=== PATIENT | male | born 1960 ===

== ENCOUNTER 2017-09-29 08:53 | Emergency (ER) | payer MEDICARE, OTHER ==
[2017-09-29] MEDS: KETOROLAC TROMETHAMINE 60 MG/2 ML VIAL IM ONE (09:40)
[2017-09-29] MEDS: KETOROLAC TROMETHAMINE 60 MG/2 ML VIAL ONE (09:55)
--- NOTE | 2017-09-29 10:07 | ED Physician Documentation ---
General Adult - HISTORIAN Historian: patient, other (shelter per phone) - HPI Stated Complaint: Lt jaw pain/stiffness since Wednesday Chief Complaint: General Adult Additional Information: pt has hx trigeminal neuralgia-he is having episodes sudden shooting pain in lt jaw. this comes intermittently. during episodes he does not drink water -the cold makes condition worse-he also does not eat much per shelter nurse. reportedly he has intermittent episodes approx q 6 months - lasts several days to week or so. 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 RECURRENT PYELONEPHRITIS) Allergies/Adverse Reactions: Allergies Allergy/AdvReac Type Severity Reaction Status Date / Time No Known Allergies Allergy Verified 09/29/17 09:53 Home Medications: Ambulatory Orders Medication Instructions Recorded Acetaminophen [Acetaminophen 8 650 mg PO Q8 PRN 09/29/17 Hour] Apixaban [Eliquis] 5 mg PO BID 09/29/17 Gabapentin 300 mg PO TID 09/29/17 Magnesium Citrate [Citrate of 148 ml PO D PRN 09/29/17 Magnesia] Polyethylene Glycol 3350 [Miralax] 1 cap PO D PRN 09/29/17 - SOCIAL HX Smoking History: non-smoker Alcohol Use: none Drug Use: none - FAMILY HX Family History: No - VITAL SIGNS Vital Signs: Vital Signs Temp Pulse Resp BP Pulse Ox 98.4 F 86 14 127/77 96 09/29/17 08:54 09/29/17 08:54 09/29/17 08:54 09/29/17 08:54 09/29/17 08:54 - REVIEWED ASSESSMENTS Nursing Assessment Reviewed: Yes Vitals Reviewed: Yes ED Results Lab/Radiology - Orders Orders: ED Orders Category Date Time Status Place IV Lock 1T Care 09/29/17 10:00 Ordered CBC/PLATELET/DIFF Routine Lab 09/29/17 Ordered CMP Routine Lab 09/29/17 Ordered URINALYSIS Routine Lab 09/29/17 Ordered 0.9 % Sodium Chloride [Normal Saline] 1,000 ml Med 09/29/17 10:00 Ordered IV Q1H FOSPHENYTOIN SODIUM MG in 0.9 % SODIUM CHLORIDE @ 6.5 Med 09/29/17 09:49 Ordered MLS/MIN(100ml) Fosphenytoin Sodium [Cerebyx] 500 mg 0.9 % Sodium Chloride [Sodium Chloride] 100 ml IV 1T Ketorolac Tromethamine [Toradol] Med 09/29/17 09:37 Discontinued 60 mg .ROUTE .STK-MED ONE Ketorolac Tromethamine [Toradol] Med 09/29/17 09:37 Discontinued 60 mg IM NOW ONE General Adult Physical Exam - PHYSICAL EXAM GENERAL APPEARANCE: moderate distress EENT: eye inspection normal NECK: normal inspection RESPIRATORY: no resp distress, breath sounds normal CVS: reg rate & rhythm, heart sounds normal ABDOMEN: soft, non-tender SKIN: warm/dry, normal color. No: cyanosis, diaphoresis, jaundice, mottled EXTREMITIES: non-tender (WHEEL CHAIR PT) NEURO: oriented X3, motor nml, sensation nml, mood/affect nml, other (PT STATES TOTALLY DEAF BUT READS LIPS WELL-STILL DIFFICULT TO TOTALLY COMMUNICATE) Discharge Clincal Impression: acute exaberation trigeminal neuralgia Referrals: Arturo Booth MD [Primary Care Provider] - 2 Days Comments: pt relates is markedly improved - now speaks w/o difficulty-states pain essentially gone Condition: Good Disposition: 01 HOME, SELF-CARE Decision to Admit: NO Decision Time: 17:29
[2017-09-29 10:28] LABS: BASOPHILS % 0.9 (0.0-1.5); EOSINOPHILS % 3.2 % (0.0-6.8); MEAN CORPUSCULAR HEMOGLOBIN 34.1 pg (28.0-34.0); MEAN CORPUSCULAR VOLUME 101.5 fl (80.0-100.0); NEUTROPHILS # 5.9 # k/uL (1.4-7.7)
[2017-09-29] MEDS: FOSPHENYTOIN SODIUM IV STA (10:35)
[2017-09-29] MEDS: SODIUM CHLORIDE 0.9% IV STA (10:35)
[2017-09-29] MEDS: 0.9 % SODIUM CHLORIDE 1,000 ML IV ONE (10:35)
[2017-09-29 10:47] LABS: eGFR (African) > 60; eGFR (Non-African) > 60
[2017-09-29 16:45] VITALS: BP 128/74
== END 2017-09-29 13:10 | disposition home or self-care (01) ==
LOC: ED 08:53
DX: G50.0 Trigeminal neuralgia (principal)
CPT/HCPCS: 80053; 85025; J1885; J7030; Q2009; 96365; 96366; 96375; 99284; S1016

== ENCOUNTER 2018-04-07 18:45 | Emergency (ER) | payer MEDICARE, OTHER ==
[2018-04-07] MEDS ORDERED: LIDOCAINE HCL 1% PF 50MG/5ML AMP (IM/SUTURE/PAIN CLINIC) IJ ONE (20:10)
[2018-04-07] MEDS ORDERED: cefTRIAXone SODIUM 1 GM INJ IM ONE (20:10)
--- NOTE | 2018-04-07 20:14 | ED Physician Documentation ---
General Adult - HPI Stated Complaint: refusing antibiotics Chief Complaint: General Adult Additional Information: Patient presents to ED via EMS from custodial because he is refusing antibiotics. Patient is taking Rocephin 1g IM daily for infected kidney stone. He is refusing so the custodial sent him to the ED. Patient asks, "why am I here, what is wrong with me". Onset: days ago Timing: still present Severity: mild - ROS CONST: fever EYES/ENT: none CVS/RESP: none GI/: none MS/SKIN/LYMPH: none NEURO/PSYCH: denies: headache - PAST HX Past History: none, COPD Other History: seizure disorder Allergies/Adverse Reactions: Allergies Allergy/AdvReac Type Severity Reaction Status Date / Time No Known Allergies Allergy Verified 04/07/18 19:46 Home Medications: Ambulatory Orders Medication Instructions Recorded Acetaminophen [Acetaminophen 8 650 mg PO Q8 PRN 09/29/17 Hour] Apixaban [Eliquis] 5 mg PO BID 09/29/17 Gabapentin 300 mg PO TID 09/29/17 Magnesium Citrate [Citrate of 148 ml PO D PRN 09/29/17 Magnesia] Polyethylene Glycol 3350 [Miralax] 1 cap PO D PRN 09/29/17 Bisacodyl [Dulcolax] 1 supp XX Q72 04/07/18 Carbamazepine [Carbamazepine ER] 1 tab PO BID 04/07/18 Clonazepam [Klonopin] 1 tab PO HS 04/07/18 Duloxetine HCl 1 tab PO DAILY 04/07/18 Levetiracetam [Roweepra] 1 tab PO BID 04/07/18 Phenytoin Sodium Extended 1 tab PO BID PRN 04/07/18 [Phenytek] Polyethylene Glycol 3350 [Miralax] 1 pkt PO DAILY PRN MDD 17gm 04/07/18 Trazodone HCl 1 tab PO HS 04/07/18 - SOCIAL HX Smoking History: cigarettes, greater than 1 pack/day Alcohol Use: none Drug Use: none - FAMILY HX Family History: No - VITAL SIGNS Vital Signs: Vital Signs Temp Pulse Resp BP Pulse Ox 98.8 F 101 H 18 130/88 94 04/07/18 19:23 04/07/18 19:23 04/07/18 19:23 04/07/18 19:23 04/07/18 19:23 - REVIEWED ASSESSMENTS Nursing Assessment Reviewed: Yes Vitals Reviewed: Yes ED Results Lab/Radiology - Orders Orders: ED Orders Category Date Time Status Lidocaine 1% 5ml(IM or SUTURE) [Xylocaine] Med 04/07/18 20:10 Once 10 mg IJ NOW ONE cefTRIAXone SODIUM [Rocephin] Med 04/07/18 20:10 Once 1 gm IM NOW ONE General Adult Physical Exam - PHYSICAL EXAM GENERAL APPEARANCE: no distress EENT: MADALYN NECK: normal inspection, supple RESPIRATORY: no resp distress, breath sounds normal CVS: reg rate & rhythm, heart sounds normal ABDOMEN: soft, normal bowel sounds, no distension, non-tender BACK: no CVA tenderness SKIN: warm/dry, normal color EXTREMITIES: non-tender NEURO: oriented X3 Discharge Clincal Impression: Medically noncompliant Referrals: Arturo Booth MD [Primary Care Provider] - 2 Days Additional Instructions: 1. Take antibiotics as directed 2. Follow up with Urologist as directed 3. Follow up with PCP within 1 week 4. Return to the ER for new or worsening symptoms. Condition: Stable Disposition: 04 [facility] Decision to Admit: NO Date of Decison to Admit: 04/07/18 Decision Time: 20:17
[2018-04-07 20:52] VITALS: BP 152/91
== END 2018-04-07 20:53 ==
LOC: ED 18:45
DX: Z91.14 Patient's other noncompliance with medication regimen (principal)
CPT/HCPCS: 96372; 99282; 99283; J0696

== ENCOUNTER 2018-05-16 09:39 | Emergency (ER) | payer MEDICARE, OTHER ==
[2018-05-16 10:44] LABS: BASOPHILS % 0.6 (0.0-1.5); EOSINOPHILS % 6.1 % (0.0-6.8); MEAN CORPUSCULAR HEMOGLOBIN 31.6 pg (28.0-34.0); NEUTROPHILS # 5.6 # k/uL (1.4-7.7)
--- NOTE | 2018-05-16 10:46 | ED Physician Documentation ---
General Adult - HISTORIAN Historian: patient - HPI Stated Complaint: open sores on his coccyx Chief Complaint: General Adult Further Comments: yes (57 year old male patient arrives from [facility] with complaint of "I want something done with my wounds". Patient is being seen at [facility] by wound care - does not know who. 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 ) Allergies/Adverse Reactions: Allergies Allergy/AdvReac Type Severity Reaction Status Date / Time No Known Allergies Allergy Verified 05/16/18 10:03 Home Medications: Ambulatory Orders Medication Instructions Recorded Acetaminophen [Acetaminophen 8 650 mg PO Q8 PRN 09/29/17 Hour] Apixaban [Eliquis] 5 mg PO BID 09/29/17 Gabapentin 300 mg PO TID 09/29/17 Magnesium Citrate [Citrate of 148 ml PO D PRN 09/29/17 Magnesia] Polyethylene Glycol 3350 [Miralax] 1 cap PO D PRN 09/29/17 Bisacodyl [Dulcolax] 1 supp XX Q72 04/07/18 Carbamazepine [Carbamazepine ER] 1 tab PO BID 04/07/18 Clonazepam [Klonopin] 1 tab PO HS 04/07/18 Duloxetine HCl 1 tab PO DAILY 04/07/18 Levetiracetam [Roweepra] 1 tab PO BID 04/07/18 Phenytoin Sodium Extended 1 tab PO BID PRN 04/07/18 [Phenytek] Polyethylene Glycol 3350 [Miralax] 1 pkt PO DAILY PRN MDD 17gm 04/07/18 Trazodone HCl 1 tab PO HS 04/07/18 - SOCIAL HX Smoking History: non-smoker - FAMILY HX Family History: No - VITAL SIGNS Vital Signs: Vital Signs Temp Pulse Resp BP Pulse Ox 98.0 F 83 19 110/74 95 05/16/18 09:43 05/16/18 09:43 05/16/18 09:43 05/16/18 09:43 05/16/18 09:43 - REVIEWED ASSESSMENTS Nursing Assessment Reviewed: Yes Vitals Reviewed: Yes Progress - Progress Progress: Patient needs wound debridement and care by electronic publications specialist. longterm has been using hat cleaner and packing with wet to dry. Patient brought to Er with no dressings on wounds. Call to Dr Booth - patient is being followed by [facility] care [facility] the [facility]. Recommended setting up with wound clinic. Arrangements made for patient to be seen at [facility] on , 05/19 at 0830. Will start half strength Dakins wet to dry bid until patient is seen at [facility] for wound care. Updated Dr Booth on plan of care. Patient concerned with hematuria. Discussed with Dr Booth. Patient is followed by urologist. Dr Booth to see patient at [facility] tomorrow. Will address urology follow up. Call to [facility] - case discussed with director of dietary; reviewed wound care instructions. ED Results Lab/Radiology - Orders Orders: ED Orders Category Date Time Status CBC/PLATELET/DIFF Stat Lab 05/16/18 10:21 Received CMP Stat Lab 05/16/18 10:21 Received General Adult Physical Exam - PHYSICAL EXAM GENERAL APPEARANCE: [id number] N EENT: eye inspection normal, MADALYN, other (deaf; reads lips) RESPIRATORY: no resp distress, chest non-tender, breath sounds normal CVS: reg rate & rhythm, heart sounds normal, equal pulses, no murmur, no gallop, PMI nml, no JVD, no friction rub, 24 ABDOMEN: soft, no organomegaly, normal bowel sounds, no abdominal bruit, no distension, other (indwelling esparza catheter with hematuria noted. ) BACK: normal inspection, no CVA tenderness SKIN: warm/dry, normal color, other (thin, frail make; Wound #1 coccy 2 cm roundx 1 cm deep, wound #2 4 cm length x 2 cm wide, 1.5 cm deep - extensive amount of nonviable tissue, foul odor.) EXTREMITIES: other (paraplegic) NEURO: oriented X3, mood/affect nml (flat affect) Discharge Clincal Impression: Paraplegia, Indwelling Esparza catheter present Wound of sacral region Qualifiers: Encounter type: initial encounter Qualified Code(s): S31.000A - Unspecified open wound of lower back and pelvis without penetration into retroperitoneum, initial encounter Wound of right buttock Qualifiers: Encounter type: initial encounter Qualified Code(s): S31.819A - Unspecified open wound of right buttock, initial encounter Hematuria Qualifiers: Hematuria type: gross Qualified Code(s): R31.0 - Gross hematuria Referrals: Arturo Booth MD [Primary Care Provider] - 2 Days Additional Instructions: Stop previous wound care orders Start using: Dakin .5% solution - cleanse wound twice a day with dakin's Use for wet to dry dressing. Pack wound with 4x4 wet with dakin's, then cover with abd pad and secure with paper tape. Patient has Appointment on 05/19/2018 at 8:30 Condition: Stable Disposition: 01 HOME, SELF-CARE Decision to Admit: NO Decision Time: 11:19
[2018-05-16 11:20] VITALS: BP 99/70
[2018-05-16 11:23] LABS: eGFR (Non-African) > 60
[2018-05-16] MEDS ORDERED: SODIUM HYPOCHLORITE 0.25% TOP ONE (12:00)
== END 2018-05-16 12:02 | disposition home or self-care (01) ==
LOC: ED 09:39
DX: S31.000A Unspecified open wound of lower back and pelvis without penetration into retroperitoneum, initial encounter (principal); S31.819A Unspecified open wound of right buttock, initial encounter; R31.9 Hematuria, unspecified; G82.20 Paraplegia, unspecified; X58.XXXA Exposure to other specified factors, initial encounter; Y93.9 Activity, unspecified; Y92.129 Unspecified place in nursing home as the place of occurrence of the external cause; Z96.0 Presence of urogenital implants
CPT/HCPCS: 36415; 80053; 85025; 99283; 99284